=== PATIENT | male | born 1970 | race American Indian/Alaskan Native ===

== ENCOUNTER 2016-09-30 17:27 | Emergency (ER) | payer SELFPAY ==
--- NOTE | 2016-09-30 19:14 | XRay Report ---
FINAL REPORT EXAM: XR ELBOW 3 RT HISTORY: right elbow dislocation; injury COMPARISONS: None. FINDINGS: Three views right elbow No bone lesion, periosteal reaction, or fracture. No deformity or gross malalignment. No joint effusion. IMPRESSION: No fracture. No right elbow malalignment or joint effusion. Consider additional imaging for worsening/persistent symptoms.
[2016-09-30] MEDS ORDERED: NORCO 7.5/325 PO ONE (19:21)
[2016-09-30 20:06] VITALS: BP 132/84
--- NOTE | 2016-09-30 20:17 | Emergency Department Report ---
Upper Extremity - [facility] Chief Complaint: Extremity Injury, Upper Stated Complaint: RT ARM DISLOCATED Upper Extremity: Right Elbow Occurred When: 3 Days Mechanism: Hyperextension, Twist Severity: severe Symptoms: Yes Pain with Movement, Yes Limited Range of Movement, Yes Swelling, No Deformity, No Numbness, No Weakness, No Bruising/Ecchymosis Other History: 46-year-old -[place] male comes in for injury to his right upper axillary area pain. Patient reports that he was lifting a tire rim on Friday and had some discomfort in his elbow on Friday he was moving a dresser and felt something pop and since then he is now having pain with fully extending his arm. He has noticed something bulge at the muscle area right below the brachial plexus in the lateral aspect at the antecubital area of his right arm. He reports that the right hand tingles at times. ED Review of Systems ROS: Stated complaint: RT ARM DISLOCATED Other details as noted in HPI ED Past Medical Hx - Past Medical History Previous Medical History?: No - Surgical History Additional Surgical History: RIGHT ROTATOR CUFF REPAIR - Social History Smoking Status: Current Every Day Smoker Substance Use Type: None - Medications Home Medications: Home Medications Medication Instructions Recorded Confirmed Last Taken Type Acetaminophen/Codeine [Tylenol 1 tab PO Q6H PRN #20 tab 09/30/16 Unknown Rx /Codeine # 3 tab] Ibuprofen [Motrin 800 MG tab] 800 mg PO Q8HR PRN #30 tablet 09/30/16 Unknown Rx Upper Extremity Exam - Exam General: Vital signs noted. No distress. Alert and acting appropriately. Head and Torso: No HEENT Abnormality, No Neck Tenderness, No Chest/Lungs Abnormality, No Abdominal Tenderness, No Back Tenderness Shoulder Exam: Yes Normal Range of Motion in Shoulder, No Shoulder Tenderness, No Clavicle Tenderness, No Shoulder Deformity, No AC Joint Tenderness Arm Exam: Yes Arm/Humerus Tenderness, No Arm Deformity Elbow: Yes Elbow Tenderness, Yes Normal Range of Motion in Elbow, No Elbow Deformity Forearm: Yes Forearm Tenderness, Yes Pain with Pronation, Yes Pain with Supination, No Forearm Deformity Wrist: Yes Normal ROM in Wrist, No Wrist Tenderness, No Wrist Deformity, No Snuffbox Tenderness, No Pain with Axial Thumb Compression Hand: Yes Normal ROM in Digit(s), No Hand Tenderness, No Hand Deformity, No Digit Tenderness, No Digit(s) Deformity, No Tendon Dysfunction CMS Exam: Yes Normal Distal Pulses, Yes Normal Capillary Refill, Yes Normal Distal Sensation, No Broken Skin ED Course Vital Signs 09/30/16 17:36 Temperature 98.3 F Pulse Rate 80 Respiratory 18 Rate Blood Pressure 145/101 O2 Sat by Pulse 100 Oximetry - Reevaluation(s) Reevaluation #1: 09/30/16 20:37 Reports that the pain has improved with having the Schlater. ED Medical Decision Making - Radiology Data Radiology results: report reviewed, image reviewed FINDINGS: Three views right elbow No bone lesion, periosteal reaction, or fracture. No deformity or gross malalignment. No joint effusion. IMPRESSION: No fracture. No right elbow malalignment or joint effusion. Consider additional imaging for worsening/persistent symptoms. Transcribed By: SOLA Dictated By: GAEL DAVILA MD Electronically Authenticated By: GAEL DAVILA MD Signed Date/Time: 09/30/161909 DD/ 09 TD/TT: 09/30/161909 - Medical Decision Making Patient's been evaluated by this provider aspect. X-rays came back no fractures or dislocations. Discussed with patient that he needs to follow up with an orthopedic. Take pain medication as prescribed. That's the patient that he should wear the splint posterior on the right elbow for comfort. Recommend for him to follow up with orthopedics within the next 24-48 hours. Critical care attestation.: If time is entered above; I have spent that time in minutes in the direct care of this critically ill patient, excluding procedure time. ED Disposition Clinical Impression: Strain of elbow and forearm Qualifiers: Encounter type: initial encounter Laterality: right Qualified Code(s): S46.811A - Strain of other muscles, fascia and tendons at shoulder and upper arm level, right arm, initial encounter; S56.911A - Strain of unspecified muscles, fascia and tendons at forearm level, right arm, initial encounter Disposition: DISCHARGED TO HOME OR SELFCARE Is pt being admited?: No Does the pt Need Aspirin: No Condition: Stable Additional Instructions: It's very important for you to follow up with orthopedics for further evaluation of ear right arm. Please wear this splint for comfort. He may take it off to take a shower and then rewrap it back. Be cautious with heavy machinery while taking the Tylenol No. 3. You should not operate heavy machinery while taking this medication. Prescriptions: Acetaminophen/Codeine [Tylenol /Codeine # 3 tab] 1 tab PO Q6H PRN #20 tab PRN Reason: Pain Ibuprofen [Motrin 800 MG tab] 800 mg PO Q8HR PRN #30 tablet PRN Reason: Pain Referrals: PRIMARY CARE, [Primary Care Provider] - 3-5 Days ANTONINO ELDRIDGE MD [Staff Physician] - 3-5 Days [facility] [Provider Group] - 3-5 Days [facility] [Provider Group] - 3-5 Days Forms: Work/School Release Form(ED)
== END 2016-09-30 20:40 | disposition home or self-care (01) ==
LOC: ED 17:27
DX: S46.811A Strain of other muscles, fascia and tendons at shoulder and upper arm level, right arm, initial encounter (principal); F17.200 Nicotine dependence, unspecified, uncomplicated; X50.0XXA Overexertion from strenuous movement or load, initial encounter; Y93.89 Activity, other specified; Y99.9 Unspecified external cause status; Y92.89 Other specified places as the place of occurrence of the external cause

== ENCOUNTER 2018-02-28 20:46 | Emergency (ER) | payer SELFPAY ==
[2018-02-28 20:57] VITALS: BP 135/87
== END 2018-02-28 23:55 | disposition left against medical advice (07) ==
LOC: ED 20:46
DX: M79.642 Pain in left hand (principal); Z53.21 Procedure and treatment not carried out due to patient leaving prior to being seen by health care provider

== ENCOUNTER 2018-06-25 12:51 | Emergency (ER) | payer SELFPAY ==
[2018-06-25] MEDS ORDERED: TESSALON PERLES PO ONE (13:17)
[2018-06-25] MEDS ORDERED: IBUPROFEN PO ONE (13:17)
[2018-06-25 13:58] VITALS: BP 114/80
--- NOTE | 2018-06-25 14:21 | XRay Report ---
ROUTINE CHEST, TWO VIEWS: HISTORY: Cough. The trachea, heart, mediastinal contour, lung shepard and bony thorax are unremarkable. IMPRESSION: Unremarkable chest x-ray.
--- NOTE | 2018-06-25 14:37 | Emergency Department Report ---
- General Chief Complaint: Upper Respiratory Infection Stated Complaint: FLU LIKE SYM/RT SIDE TOOTH PAIN Time Seen by Provider: 06/25/18 13:13 Source: patient Mode of arrival: Ambulatory Limitations: No Limitations - History of Present Illness Initial Comments: This is a 48-year-old male nontoxic, well nourished in appearance, no acute signs of distress presents to the ED with c/o of productive cough, subjective fever, chills, body aches, rhinorrhea, nasal congestion x3 days. Patient is also c/o of dental pain. Patient denies any facial swelling or abscess. Patient describes productive cough as yellow mucus production. Patient denies any sick contact. Patient denies any recent travels, long car, recent hospital stays. Patient denies any calf pain or calf tenderness. Patient denies any chest pain, short of breath, fever, chills, nausea, vomiting, hemoptysis, numbness, tingling, headache or stiff neck. Patient stated allergies to tramadol , promethazine and IV dye. Denies significant past medical history. MD Complaint: cough, rhinorrhea, nasal congestion, other (body aches) -: days(s) (3) Severity: mild Severity scale (0 -10): 8 Quality: aching Consistency: constant Improves With: nothing Worsens With: nothing Associated Symptoms: fever, chills, rhinorrhea, nasal congestion, cough. denies: myalgias, diaphoresis, headache, sore throat, stiff neck, chest pain, shortness of breath, abdominal pain, nausea, vomiting, diarrhea, dysuria, rash, confusion, right sweats, weight loss, epistaxis, hoarseness, ear pain Treatments Prior to Arrival: none - Related Data Previous Rx's Medication Instructions Recorded Last Taken Type Acetaminophen/Codeine [Tylenol 1 tab PO Q6H PRN #20 tab 09/30/16 Unknown Rx /Codeine # 3 tab] Ibuprofen [Motrin 800 MG tab] 800 mg PO Q8HR PRN #30 tablet 09/30/16 Unknown Rx Dimethicone/Colloidal Oatmeal 227 gm TP DAILY #1 lotion 05/13/18 Unknown Rx [Aveeno Daily Moisturizing Lot] Ibuprofen [Motrin] 600 mg PO Q8H PRN #20 tablet 05/13/18 Unknown Rx Ketorolac [Toradol] 10 mg PO Q6H PRN #20 tablet 05/13/18 Unknown Rx Acetaminophen/Codeine [Tylenol 1 tab PO Q6H PRN #12 tab 05/14/18 Unknown Rx /Codeine # 3 tab] Amoxicillin/K Clav Tab [Augmentin 1 tab PO Q12HR #20 tab 05/14/18 Unknown Rx 875 mg] Chlorhexidine Mouthwash [Peridex] 15 ml MM BID #1 bottle 05/14/18 Unknown Rx Azithromycin [Zithromax Z-HERNAN] 250 mg PO DAILY #6 tablet 06/25/18 Unknown Rx Benzonatate [Tessalon Perle] 100 mg PO Q8H PRN #20 capsule 06/25/18 Unknown Rx Ibuprofen [Motrin] 600 mg PO Q8H PRN #20 tablet 06/25/18 Unknown Rx Allergies Allergy/AdvReac Type Severity Reaction Status Date / Time promethazine HCl Allergy Hives Verified 06/25/18 13:04 [From Phenergan] tramadol AdvReac HICCUPS / Verified 06/25/18 13:04 ANXIETY IV DYE Allergy Hives Uncoded 08/07/14 17:34 ED Review of Systems ROS: Stated complaint: FLU LIKE SYM/RT SIDE TOOTH PAIN Other details as noted in HPI Constitutional: chills, fever Eyes: denies: eye pain, eye discharge, vision change ENT: congestion. denies: ear pain, throat pain Respiratory: cough. denies: shortness of breath, wheezing Cardiovascular: denies: chest pain, palpitations Endocrine: no symptoms reported Gastrointestinal: denies: abdominal pain, nausea, diarrhea Genitourinary: denies: urgency, dysuria Musculoskeletal: denies: back pain, joint swelling, arthralgia Skin: denies: rash, lesions Neurological: denies: headache, weakness, paresthesias Psychiatric: denies: anxiety, depression Hematological/Lymphatic: denies: easy bleeding, easy bruising ED Past Medical Hx - Past Medical History Previous Medical History?: No - Surgical History Past Surgical History?: Yes Additional Surgical History: RIGHT ROTATOR CUFF REPAIR - Social History Smoking Status: Current Every Day Smoker Substance Use Type: None - Medications Home Medications: Home Medications Medication Instructions Recorded Confirmed Last Taken Type Acetaminophen/Codeine [Tylenol 1 tab PO Q6H PRN #20 tab 09/30/16 Unknown Rx /Codeine # 3 tab] Ibuprofen [Motrin 800 MG tab] 800 mg PO Q8HR PRN #30 tablet 09/30/16 Unknown Rx Dimethicone/Colloidal Oatmeal 227 gm TP DAILY #1 lotion 05/13/18 Unknown Rx [Aveeno Daily Moisturizing Lot] Ibuprofen [Motrin] 600 mg PO Q8H PRN #20 tablet 05/13/18 Unknown Rx Ketorolac [Toradol] 10 mg PO Q6H PRN #20 tablet 05/13/18 Unknown Rx Acetaminophen/Codeine [Tylenol 1 tab PO Q6H PRN #12 tab 05/14/18 Unknown Rx /Codeine # 3 tab] Amoxicillin/K Clav Tab [Augmentin 1 tab PO Q12HR #20 tab 05/14/18 Unknown Rx 875 mg] Chlorhexidine Mouthwash [Peridex] 15 ml MM BID #1 bottle 05/14/18 Unknown Rx Azithromycin [Zithromax Z-HERNAN] 250 mg PO DAILY #6 tablet 06/25/18 Unknown Rx Benzonatate [Tessalon Perle] 100 mg PO Q8H PRN #20 capsule 06/25/18 Unknown Rx Ibuprofen [Motrin] 600 mg PO Q8H PRN #20 tablet 06/25/18 Unknown Rx ED Physical Exam - General Limitations: No Limitations General appearance: alert, in no apparent distress - Head Head exam: Present: atraumatic, normocephalic - Eye Eye exam: Present: normal appearance - Neck Neck exam: Present: normal inspection, full ROM. Absent: tenderness, meningismus, lymphadenopathy - Respiratory Respiratory exam: Present: normal lung sounds bilaterally. Absent: respiratory distress, wheezes, rales, rhonchi, stridor, chest wall tenderness, accessory muscle use, decreased breath sounds, prolonged expiratory - Cardiovascular Cardiovascular Exam: Present: regular rate, normal rhythm, normal heart sounds. Absent: bradycardia, tachycardia, irregular rhythm, systolic murmur, diastolic murmur, rubs, gallop - Rectal Rectal exam: Present: deferred - Extremities Exam Extremities exam: Present: normal inspection, full ROM - Back Exam Back exam: Present: normal inspection, full ROM - Neurological Exam Neurological exam: Present: alert, oriented X3 - Psychiatric Psychiatric exam: Present: normal affect, normal mood - Skin Skin exam: Present: warm, dry, intact, normal color. Absent: rash ED Course Vital Signs 06/25/18 13:04 Temperature 97.2 F L Pulse Rate 72 Blood Pressure 114/80 [Left] O2 Sat by Pulse 100 Oximetry - Reevaluation(s) Reevaluation #1: 06/25/18 14:38 Patient is speaking in full sentences with no signs of distress noted. ED Medical Decision Making - Medical Decision Making This is a 48-year-old male that presents with bronchitis. Patient is stable and was examined by me. Chest x-ray has been obtained and dictated by radiologist with normal exam. Patient is notified of x-ray results with no questions noted. Due to patient having symptoms of upper respiratory infection and worsening I will treat patient empirically with zpak. Negative influenza swab. Patient was instructed to increase hydration, rest and take Motrin for fever episodes. Patient received motrin and tesslone perrls in the ED. Vitals stable. Patient is nonfebrile and normal heart rate. Patient was instructed Follow-up with a primary care doctor in 3-5 days or if symptoms worsen and continue return to emergency room as soon as possible. At time time of discharge, the patient does not seem toxic or ill in appearance. No acute signs of distress noted. Patient agrees to discharge treatment plan of care. No further questions noted by the patient. Critical care attestation.: If time is entered above; I have spent that time in minutes in the direct care of this critically ill patient, excluding procedure time. ED Disposition Clinical Impression: Bronchitis Disposition: [id number]-01 TO HOME OR SELFCARE Is pt being admited?: No Does the pt Need Aspirin: No Condition: Stable Instructions: Acute Bronchitis (ED) Additional Instructions: Follow-up with a primary care doctor in 3-5 days or if symptoms worsen and continue return to emergency room as soon as possible. Prescriptions: Azithromycin [Zithromax Z-HERNAN] 250 mg PO DAILY #6 tablet Benzonatate [Tessalon Perle] 100 mg PO Q8H PRN #20 capsule PRN Reason: Cough Ibuprofen [Motrin] 600 mg PO Q8H PRN #20 tablet PRN Reason: Pain Referrals: PRIMARY CARE, [Referring] - 3-5 Days YOUSIF SAWYER MD [Staff Physician] - 3-5 Days [facility] [Outside] - 3-5 Days [facility] [Outside] - 3-5 Days Forms: Work/School Release Form(ED)
== END 2018-06-25 15:19 | disposition home or self-care (01) ==
LOC: ED 12:51
DX: J40 Bronchitis, not specified as acute or chronic (principal); F17.200 Nicotine dependence, unspecified, uncomplicated
CPT/HCPCS: 71046; 87400

== ENCOUNTER 2018-08-17 00:17 | Emergency (ER) | payer OTHER ==
[2018-08-17 00:23] VITALS: BP 106/73
--- NOTE | 2018-08-17 02:59 | Emergency Department Report ---
ED ENT HPI - General Chief complaint: Dental/Oral Stated complaint: TOOTHACHE Source: patient Mode of arrival: Ambulatory Limitations: No Limitations - History of Present Illness Initial comments: Pt is a 48 yo male who presents to the ED with right upper dental pain that began 4 days ago. He states it is painful to chew. He states one day earlier in the week he thought he had a fever but did not take anything for it and has not had one since then. He is afebrile in the emergency department. He has not seen a dentist for this complaint. The patient states he last saw a dentist 6 months ago for a cleaning but did not receive any XRs. He denies any facial swelling. The patient states he has not had any prior teeth extractions. Pt states he took 3 pills of amoxicillin that his mother had leftover. - Related Data Previous Rx's Medication Instructions Recorded Last Taken Type Ibuprofen [Motrin 800 MG tab] 800 mg PO Q8HR PRN #30 tablet 09/30/16 Unknown Rx Ibuprofen [Motrin] 600 mg PO Q8H PRN #20 tablet 06/25/18 Unknown Rx Amoxicillin/K Clav Tab [Augmentin 1 tab PO Q12HR #20 tab 08/17/18 Unknown Rx 875MG TAB] Ketorolac [Toradol] 10 mg PO Q6H PRN #20 tablet 08/17/18 Unknown Rx Allergies Allergy/AdvReac Type Severity Reaction Status Date / Time promethazine HCl Allergy Hives Verified 06/25/18 13:04 [From Phenergan] tramadol AdvReac HICCUPS / Verified 06/25/18 13:04 ANXIETY IV DYE Allergy Hives Uncoded 08/07/14 17:34 ED Dental HPI - General Chief complaint: Dental/Oral Stated complaint: TOOTHACHE Source: patient Mode of arrival: Ambulatory Limitations: No Limitations - Related Data Previous Rx's Medication Instructions Recorded Last Taken Type Ibuprofen [Motrin 800 MG tab] 800 mg PO Q8HR PRN #30 tablet 09/30/16 Unknown Rx Ibuprofen [Motrin] 600 mg PO Q8H PRN #20 tablet 06/25/18 Unknown Rx Amoxicillin/K Clav Tab [Augmentin 1 tab PO Q12HR #20 tab 08/17/18 Unknown Rx 875MG TAB] Ketorolac [Toradol] 10 mg PO Q6H PRN #20 tablet 03/11/19 Unknown Rx Allergies Allergy/AdvReac Type Severity Reaction Status Date / Time promethazine HCl Allergy Hives Verified 06/25/18 13:04 [From Phenergan] tramadol AdvReac HICCUPS / Verified 06/25/18 13:04 ANXIETY IV DYE Allergy Hives Uncoded 08/07/14 17:34 ED Review of Systems ROS: Stated complaint: TOOTHACHE Other details as noted in HPI Comment: All other systems reviewed and negative ED Past Medical Hx - Past Medical History Previous Medical History?: No - Surgical History Past Surgical History?: Yes Additional Surgical History: RIGHT ROTATOR CUFF REPAIR - Social History Smoking Status: Never Smoker Substance Use Type: None - Medications Home Medications: Home Medications Medication Instructions Recorded Confirmed Last Taken Type Ibuprofen [Motrin 800 MG tab] 800 mg PO Q8HR PRN #30 tablet 09/30/16 Unknown Rx Ibuprofen [Motrin] 600 mg PO Q8H PRN #20 tablet 06/25/18 Unknown Rx Amoxicillin/K Clav Tab [Augmentin 1 tab PO Q12HR #20 tab 08/17/18 Unknown Rx 875MG TAB] Ketorolac [Toradol] 10 mg PO Q6H PRN #20 tablet 08/17/18 Unknown Rx ED Physical Exam - General Limitations: No Limitations General appearance: alert, in no apparent distress - Head Head exam: Present: atraumatic, normocephalic - ENT ENT exam: Present: mucous membranes moist, other (no facial swelling, no obvious dental abscess on palpation, no obvious broken teeth, dental carries present ) - Respiratory Respiratory exam: Present: normal lung sounds bilaterally. Absent: respiratory distress, wheezes, rales, rhonchi, stridor, accessory muscle use, decreased breath sounds, prolonged expiratory - Cardiovascular Cardiovascular Exam: Present: regular rate, normal rhythm, normal heart sounds. Absent: systolic murmur, rubs, gallop ED Course Vital Signs 08/17/18 00:22 Temperature 97.9 F Pulse Rate 106 H Respiratory 16 Rate Blood Pressure 106/73 [Right] O2 Sat by Pulse 98 Oximetry ED Medical Decision Making - Medical Decision Making Pt presents with right upper dental pain for 4 days. Has not seen a dentist for this complaint. Pt does not have a fever, on exam his heart rate is normal. NO facial swelling, no dental abscess palpable. Pt appears to have dental carries. Will give pt a list of resources in the area. Advised him to be seen by a dentist in the next 24 hours. Will give pt antibiotics and something for pain. Discussed with pt to take medication as prescribed. Due to pt already taking amoxicillin, will prescribe augmentin. Gave pt list of resources for dental and primary care. - Differential Diagnosis dental pain, dental carries Critical care attestation.: If time is entered above; I have spent that time in minutes in the direct care of this critically ill patient, excluding procedure time. ED Disposition Clinical Impression: Pain, dental, Pain due to dental caries Disposition: - TO HOME OR SELFCARE Is pt being admited?: No Does the pt Need Aspirin: No Condition: Stable Instructions: Dental Caries (ED), Toothache (ED) Additional Instructions: Follow up with a dentist in the next 24 hours. Follow up with primary care in the next 2 days. Gave list of dentist and primary care doctors in the area. Take all medication as prescribed. Prescriptions: Amoxicillin/K Clav Tab [Augmentin 875MG TAB] 1 tab PO Q12HR #20 tab Ketorolac [Toradol] 10 mg PO Q6H PRN #20 tablet PRN Reason: Pain Referrals: EMERSON [place] MD AGUS [Primary Care Provider] - 3-5 Days Time of Disposition: 03:05 Print Language: LUXEMBOURGER
[2018-08-17] MEDS ORDERED: TORADOL PO ONE (03:43)
== END 2018-08-17 05:04 | disposition home or self-care (01) ==
LOC: ED 00:17
DX: K02.9 Dental caries, unspecified (principal); Z88.8 Allergy status to other drugs, medicaments and biological substances; Z88.6 Allergy status to analgesic agent; Z91.041 Radiographic dye allergy status
CPT/HCPCS: 99282

== ENCOUNTER 2018-10-18 15:18 | Emergency (ER) | payer OTHER ==
--- NOTE | 2018-10-18 15:23 | Emergency Department Report ---
Stated Complaint: COLIN Time Seen by Provider: 10/18/18 15:20 - HPI History of Present Illness: pt presents to the ED with c/o sore throat that began yesterday states it hurts to swallow no fever no N/V/D + sick contact with strep throat no PMHx allergies to medications: IV dye, phenergan, tramadol +smoker, 1/2 PPD non drinker no drug use MSE screening note: Focused history and physical exam performed. Due to findings the following was ordered: rapid strep ED Disposition for MSE Condition: Stable
[2018-10-18 15:29] VITALS: BP 148/102
[2018-10-18] MEDS ORDERED: LIDOCAINE VISCOUS 2% MM ONE (16:44)
[2018-10-18] MEDS ORDERED: IBUPROFEN PO ONE (16:44)
--- NOTE | 2018-10-18 17:28 | Emergency Department Report ---
ED ENT HPI - General Chief complaint: Sore Throat Stated complaint: COLIN Time Seen by Provider: 10/18/18 15:20 Source: patient Mode of arrival: Ambulatory Limitations: No Limitations - History of Present Illness Initial comments: This is a 48-year-old male nontoxic, well nourished in appearance, no acute signs of distress presents to the ED with c/o of sore throat. Patient describes sore throat as swallowing razer blades. Patient agrees to fever and chills. Patient denies any headache, stiff neck, nausea, vomiting, chest pain, shortness of breath, numbness or tingling. Patient denies any drooling or hoarseness. Patient stated allergies to tramadol, IV dye, and promethazine HCL. Denies significant PMH. MD complaint: sore throat Location: throat Severity: mild Severity scale (0 -10): 8 Quality: aching Consistency: constant Improves with: none Worsens with: swallowing Associated Symptoms: pain with swallowing, sore throat. denies: fever, cough, gum swelling, toothache, tinnitus, hearing loss, discharge from ear, rhinorrhea - Related Data Previous Rx's Medication Instructions Recorded Last Taken Type Ibuprofen [Motrin 800 MG tab] 800 mg PO Q8HR PRN #30 tablet 09/30/16 Unknown Rx Ibuprofen [Motrin] 600 mg PO Q8H PRN #20 tablet 06/25/18 Unknown Rx Amoxicillin/K Clav Tab [Augmentin 1 tab PO Q12HR #20 tab 08/17/18 Unknown Rx 875MG TAB] Ketorolac [Toradol] 10 mg PO Q6H PRN #20 tablet 08/17/18 Unknown Rx Amoxicillin [Amoxicillin TAB] 875 mg PO BID #20 tablet 10/18/18 Unknown Rx Ibuprofen [Motrin] 600 mg PO Q8H PRN #20 tablet 10/18/18 Unknown Rx Nystas/Diphen/Xyl Visc/Mylanta 15 ml MM Q4H PRN 5 Days ml 10/18/18 Unknown Rx [Magic Mouthwash] Allergies Allergy/AdvReac Type Severity Reaction Status Date / Time promethazine HCl Allergy Hives Verified 06/25/18 13:04 [From Phenergan] tramadol AdvReac HICCUPS / Verified 06/25/18 13:04 ANXIETY IV DYE Allergy Hives Uncoded 08/07/14 17:34 ED Dental HPI - General Chief complaint: Sore Throat Stated complaint: COLIN Time Seen by Provider: 10/18/18 15:20 Source: patient Mode of arrival: Ambulatory Limitations: No Limitations - Related Data Previous Rx's Medication Instructions Recorded Last Taken Type Ibuprofen [Motrin 800 MG tab] 800 mg PO Q8HR PRN #30 tablet 09/30/16 Unknown Rx Ibuprofen [Motrin] 600 mg PO Q8H PRN #20 tablet 06/25/18 Unknown Rx Amoxicillin/K Clav Tab [Augmentin 1 tab PO Q12HR #20 tab 08/17/18 Unknown Rx 875MG TAB] Ketorolac [Toradol] 10 mg PO Q6H PRN #20 tablet 08/17/18 Unknown Rx Amoxicillin [Amoxicillin TAB] 875 mg PO BID #20 tablet 10/18/18 Unknown Rx Ibuprofen [Motrin] 600 mg PO Q8H PRN #20 tablet 10/18/18 Unknown Rx Nystas/Diphen/Xyl Visc/Mylanta 15 ml MM Q4H PRN 5 Days ml 10/18/18 Unknown Rx [Magic Mouthwash] Allergies Allergy/AdvReac Type Severity Reaction Status Date / Time promethazine HCl Allergy Hives Verified 06/25/18 13:04 [From Phenergan] tramadol AdvReac HICCUPS / Verified 06/25/18 13:04 ANXIETY IV DYE Allergy Hives Uncoded 08/07/14 17:34 ED Review of Systems ROS: Stated complaint: COLIN Other details as noted in HPI Constitutional: denies: chills, fever Eyes: denies: eye pain, eye discharge, vision change ENT: throat pain. denies: ear pain Respiratory: denies: cough, shortness of breath, wheezing Cardiovascular: denies: chest pain, palpitations Endocrine: no symptoms reported Gastrointestinal: denies: abdominal pain, nausea, diarrhea Genitourinary: denies: urgency, dysuria Musculoskeletal: denies: back pain, joint swelling, arthralgia Skin: denies: rash, lesions Neurological: denies: headache, weakness, paresthesias Psychiatric: denies: anxiety, depression Hematological/Lymphatic: denies: easy bleeding, easy bruising ED Past Medical Hx - Past Medical History Previous Medical History?: No - Surgical History Past Surgical History?: Yes Additional Surgical History: RIGHT ROTATOR CUFF REPAIR - Social History Smoking Status: Current Every Day Smoker - Medications Home Medications: Home Medications Medication Instructions Recorded Confirmed Last Taken Type Ibuprofen [Motrin 800 MG tab] 800 mg PO Q8HR PRN #30 tablet 09/30/16 Unknown Rx Ibuprofen [Motrin] 600 mg PO Q8H PRN #20 tablet 06/25/18 Unknown Rx Amoxicillin/K Clav Tab [Augmentin 1 tab PO Q12HR #20 tab 08/17/18 Unknown Rx 875MG TAB] Ketorolac [Toradol] 10 mg PO Q6H PRN #20 tablet 08/17/18 Unknown Rx Amoxicillin [Amoxicillin TAB] 875 mg PO BID #20 tablet 10/18/18 Unknown Rx Ibuprofen [Motrin] 600 mg PO Q8H PRN #20 tablet 10/18/18 Unknown Rx Nystas/Diphen/Xyl Visc/Mylanta 15 ml MM Q4H PRN 5 Days ml 10/18/18 Unknown Rx [Magic Mouthwash] ED Physical Exam - General Limitations: No Limitations General appearance: alert, in no apparent distress - Head Head exam: Present: atraumatic, normocephalic - Expanded ENT Exam Expanded Ear exam: Present: normal external inspection Mouth exam: Present: normal external inspection. Absent: drooling, trismus, muffled voice Teeth exam: Present: normal inspection Throat exam: Positive: tonsillar erythema, other (uvual midline). Negative: tonsillomegaly, tonsillar exudate, R peritonsillar mass, L peritonsillar mass - Neck Neck exam: Present: normal inspection, full ROM. Absent: tenderness, meningismus, lymphadenopathy - Extremities Exam Extremities exam: Present: normal inspection, full ROM - Back Exam Back exam: Present: normal inspection, full ROM - Neurological Exam Neurological exam: Present: alert, oriented X3 - Psychiatric Psychiatric exam: Present: normal affect, normal mood - Skin Skin exam: Present: warm, dry, intact, normal color. Absent: rash ED Course Vital Signs 10/18/18 15:22 Temperature 97.6 F Pulse Rate 96 H Respiratory 22 Rate Blood Pressure 148/102 O2 Sat by Pulse 99 Oximetry - Reevaluation(s) Reevaluation #1: 10/18/18 17:28 Patient is speaking in full sentences with no signs of distress noted. Critical care attestation.: If time is entered above; I have spent that time in minutes in the direct care of this critically ill patient, excluding procedure time. ED Disposition Clinical Impression: Pharyngitis Qualifiers: Pharyngitis/tonsillitis etiology: unspecified etiology Qualified Code(s): J02.9 - Acute pharyngitis, unspecified Disposition: - TO HOME OR SELFCARE Is pt being admited?: No Does the pt Need Aspirin: No Condition: Stable Instructions: Pharyngitis (ED) Additional Instructions: Follow-up with a primary care doctor in 3-5 days or if symptoms worsen and continue return to emergency room as soon as possible. Prescriptions: Amoxicillin [Amoxicillin TAB] 875 mg PO BID #20 tablet Nystas/Diphen/Xyl Visc/Mylanta [Magic Mouthwash] 15 ml MM Q4H PRN 5 Days ml PRN Reason: Sore Throat Ibuprofen [Motrin] 600 mg PO Q8H PRN #20 tablet PRN Reason: Pain Referrals: [facility] MD AGUS [Primary Care Provider] - 3-5 Days PRIMARY MD JUSTO [Referring] - 3-5 Days YOUSIF SWAYER MD [Staff Physician] - 3-5 Days [facility] [Outside] - 3-5 Days [facility] [Outside] - 3-5 Days Forms: Work/School Release Form(ED)
== END 2018-10-18 17:35 | disposition home or self-care (01) ==
LOC: ED 15:18
DX: J02.9 Acute pharyngitis, unspecified (principal); F17.200 Nicotine dependence, unspecified, uncomplicated; Z79.899 Other long term (current) drug therapy; Z91.041 Radiographic dye allergy status; Z88.6 Allergy status to analgesic agent
CPT/HCPCS: 87116; 87430; 99283